=== PATIENT | female | born 1990 | race Hispanic/Latino ===

== ENCOUNTER 2016-10-10 22:31 | Emergency (ER) | payer MEDICAID ==
[2016-10-10] MEDS ORDERED: Sodium Chloride 0.9% 1,000 ML ONE (22:55)
[2016-10-10] MEDS ORDERED: Acetaminophen 500 MG TAB ONE (22:55)
[2016-10-10 23:00] LABS: #Basophils 0.1 thou/uL (0.0-0.2); #Eosinphils 0.1 thou/uL (0.0-0.7); #Lymphocytes 1.2 thou/uL (1.20-3.40); #Monocytes 0.9 thou/uL (0.11-0.59); #Neutrophils 13.5 thou/uL (1.40-6.50); %Basophils 0.6 % (0.0-1.0); %Eosinophils 0.3 % (0.0-10.0); %Lymphocytes 7.7 % (21.0-51.0); %Monocytes 5.6 % (0.0-10.0); Mean Platelet Volume 9.1 fL (7.4-10.4); Red Blood Cell (RBC) Count 4.09 mill/uL (4.20-5.40); White Blood Cell (WBC) Count 15.7 thou/uL (4.8-10.8)
[2016-10-10 23:21] LABS: ALT (SGPT) 13 U/L (0-55); AST (SGOT) 18 U/L (5-34); Alkaline Phosphatase 38 U/L (40-150); Anion Gap 14 mmol/L (10-20); BUN (Urea Nitrogen) 5 mg/dL (7.0-18.7); Bilirubin, Total 1.3 mg/dL (0.2-1.2); Calc. Creatinine Clearance 0 mL/min (70-130); Calcium 9.4 mg/dL (7.8-10.44); Carbon Dioxide 20 mmol/L (22-29); Chloride 104 mmol/L (98-107); Estimated GFR-MDRD Greater than 90; Globulin 3.7 g/dL (2.4-3.5); Protein, Total 7.6 g/dL (6.0-8.3)
[2016-10-10 23:34] LABS: Bilirubin Negative (Negative); Blood, Urine Negative (Negative); Glucose, Urine (Dipstick) Negative (Negative); Ketone, Urine 40 mg/dL (Negative); Nitrite Negative (Negative); Protein, Urine (Dipstick) Negative (Neg-Trace); Urobilinogen 0.2 mg/dL (0.2-1.0)
[2016-10-10 23:35] LABS: Bacteria/HPF None Seen HPF (None Seen); RBC/HPF None Seen HPF (0-3); Squamous Epithelial 0-3 HPF (0-3); WBC/HPF None Seen HPF (0-3)
--- NOTE | 2016-10-11 00:21 | ERRECORD ---
[facility] EMERGENCY RECORD HPI SORE THROAT (22:47 JLOY) CHIEF COMPLAINT: Patient presents for evaluation of sore throat, Patient presents for evaluation of Pt with sore throat starting today. Also with fevers and chills. Slight runny nose and cough. 4yo sick with a virus that sent him to the hospital twice. HISTORIAN: History provided by patient. LOCATION: Symptoms are generalized. QUALITY: Pain is dull in nature. TIME COURSE: Gradual onset of symptoms, Symptoms are worsening, are constant. ASSOCIATED WITH: Associated with fever, subjective, Associated with chills, Associated with cough, non-productive, intermittent, No associated drooling, No associated dysphagia, Associated with headache, intermittent, No associated nasal discharge, No associated vomiting. EXACERBATED BY: Patient's condition exacerbated by nothing. RELIEVED BY: Patient's condition relieved by nothing, Patient's condition relieved by nothing because patient has not tried anything for relief. ROS (22:49 JLOY) CONSTITUTIONAL: Historian reports chills, reports fever. EYES: Historian denies eye pain, denies eye redness, denies eye discharge. ENT: Historian denies rhinorrhea, reports sore throat. CARDIOVASCULAR: Historian denies chest pain. RESPIRATORY: Historian reports cough, denies shortness of breath, denies sputum. GI: Historian denies abdominal pain, reports diarrhea, reports nausea, denies vomiting. diarrhea x3 today. GENITOURINARY FEMALE: Historian denies dysuria, denies frequency, denies hematuria, reports , denies vaginal bleeding, denies vaginal discharge. SKIN: Historian denies rash, denies skin changes. NEUROLOGIC: Historian denies dizziness, reports headache, denies paralysis, denies paresthesias, denies sensory changes. PAST MEDICAL HISTORY MEDICAL HISTORY: Flu vaccine up to date, Tetanus immunization up to date, Pneumococcal vaccine not up to date, Past medical history includes pulmonary disease, asthma. (22:39 MBOS) FEMALE SURGICAL HISTORY: Surgical history of section, Notes: x2. (22:39 MBOS) PSYCHIATRIC HISTORY: No previous psychiatric history. (22:39 MBOS) SOCIAL HISTORY: Patient denies alcohol use, Patient denies drug &a-1R&a+25V*p+0X*[id number]*c202B*c15G*c2P*p-0X&a-25V&a+1R Name: Zuleima Bernal : 1990 F25 MedRec: [id number] AcctNum: [id number] Prepared: SatOct 11, 2016 00:25 by Interface Page 1 of 3 pMD [facility] EMERGENCY RECORD use, Patient has no smoking history. (22:39 MBOS) NOTES: Nursing records reviewed, Agree with nursing records. (22:50 JLOY) KNOWN ALLERGIES No Known Allergies (Unconfirmed) No Known Drug Allergies CURRENT MEDICATIONS (22:38 MBOS) vitamin VITAL SIGNS VITAL SIGNS: BP: 154/80, Pulse: 131, Resp: 20, Temp: 100.1 (Oral), Pain: 10, O2 sat: 97 on Room Air, Time: 10/10/2016 22:36. (22:36 MBOS) BP: 123/75, Pulse: 105, Resp: 18, Temp: 100.0 (Oral), O2 sat: 99 on Room Air, Time: 10/11/2016 00:00. (SatOct 11, 2016 00:00 MBOS) PHYSICAL EXAM (22:49 JLOY) CONSTITUTIONAL: Vital Signs Reviewed, Patient appears non toxic, Patient alert and oriented to person, place and time. EYES: Eye exam included findings of eyelids normal to inspection, Pupils equally round and reactive to light, Conjunctiva normal. ENT: Ear exam normal, external ear normal, tympanic membranes normal, Pharynx exam normal, Uvula exam normal, Tonsil exam normal, Mouth exam normal, mucous membranes moist. NECK: Neck exam included findings of normal range of motion, Trachea midline, Cervical adenopathy, tender. RESPIRATORY CHEST: Respiratory exam included findings of no respiratory distress, Breath sounds clear, No wheezing, No rales, No rhonchi, Chest exam included findings of chest movement symmetrical. CARDIOVASCULAR: Cardiovascular exam included findings of, rate tachycardic, rhythm regular, Heart sounds normal. ABDOMEN FEMALE: Abdominal exam included findings of abdomen nontender, Bowel sounds normal. BACK: Back exam included findings of normal inspection, range of motion normal. UPPER EXTREMITY: Upper extremity exam included findings of inspection normal, Radial pulse normal, no cyanosis, no clubbing, no edema. LOWER EXTREMITY: Lower extremity exam included findings of inspection normal, no edema, no calf tenderness. NEURO: [place] coma scale 15, Neuro exam findings include patient oriented to person, place and time, Speech normal. SKIN: Skin exam included findings of skin warm, dry, and normal in color, no rash. PSYCHIATRIC: Normal affect. MEDICATION ADMINISTRATION SUMMARY &a-1R&a+25V*p+0X*[id number]*c202B*c15G*c2P*p-0X&a-25V&a+1R Name: Zuleima Bernal : 1990 F25 MedRec: [id number] AcctNum: [id number] Prepared: SatOct 11, 2016 00:25 by Interface Page 2 of 3 pMD [facility] EMERGENCY RECORD Drug Name: acetaminophen oral, Dose Ordered: 1000 mg, Route: Oral, Status: Given, Time: 22:50 10/10/2016, Drug Name: *sodium chloride 0.9 % intravenous, Dose Ordered: 1 L, Route: IV Fluid Infusion, Status: Given, Time: 22:50 10/10/2016, *Additional information available in notes, Detailed record available in Medication Service section. DOCTOR NOTES (SatOct 11, 2016 00:13 KANCHAN) TEXT: Pt's 4yo son recently with a virus and high fevers for which he was in the hospital a couple of times. PROBLEM LIST No recorded problems DIAGNOSIS (SatOct 11, 2016 00:13 KANCHAN) FINAL: PRIMARY: Acute pharyngitis. PRESCRIPTION No recorded prescriptions DISPOSITION PATIENT: Disposition Type: Discharge, Disposition: *Discharge Home. (SatOct 11, 2016 00:13 KANCHAN) Patient left the department. (SatOct 11, 2016 00:23 KENISHA) Strong: KANCHAN=MD Salinas, Amari DE=LARRY Hsieh, Felicitas &a-1R&a+25V*p+0X*k3576B*c202B*c15G*c2P*p-0X&a-25V&a+1R Name: Zuleima Bernal : 1990 F25 MedRec: [id number] AcctNum: [id number] Prepared: SatOct 11, 2016 00:25 by Interface Page 3 of 3 pMD MTDD
--- NOTE | 2016-10-11 00:27 | PICIS ---
[facility] EMERGENCY RECORD TRIAGE (22:37 MBOS) TRIAGE NOTES: fever, chills, sore throat, body aches. Is 4 months . (22:37 MBOS) PATIENT: NAME: Zuleima Bernal, AGE: 25, GENDER: female, : Sun 1990, TIME OF GREET: SatOct 10, 2016 22:32, PREFERRED LANGUAGE: Bermudian, ETHNICITY: or , ECODE BILLING MAP: [facility], SSN: [id number], Zip Code: [address], KG WEIGHT: [phone], PHONE: , , , PERSON ID: [id number], PCP: Jameel Hand, /NIMA. (22:37 MBOS) COMPLAINT: FEVER,THROAT PAIN. (22:37 MBOS) ADMISSION: URGENCY: 4 Non Urgent, ADMISSION SOURCE: Home, TRANSPORT: CAR, BED: ER -05. (22:37 MBOS) ASSESSMENT: Assessment: fever, sore throat, chills, body aches, headache., Symptoms began 10 hours ago. (22:39 MBOS) PAIN: Patient complains of pain described as, on a scale 0-10 patient rates pain as 10, Location throat. (22:39 MBOS) IMMUNIZATIONS: Flu vaccine up to date, Tetanus immunization up to date, Pneumococcal vaccine not up to date. (22:39 MBOS) SIRS SCORING: Heart Rate 110-139 (2), Temp range 96.8-101.1 (0), respiratory rate 12-24 (0), Latest WBC 3-14.9 (0). (22:39 MBOS) PROVIDERS: TRIAGE NURSE: Felicitas Hsieh RN. (22:37 MBOS) VITAL SIGNS: BP 154/80, Pulse 131, Resp 20, Temp 100.1, (Oral), Pain 10, O2 Sat 97, on Room Air, Time 10/10/2016 22:36. (22:36 MBOS) PREVIOUS VISIT ALLERGIES: No Known Drug Allergies. (22:37 MBOS) No Known Drug Allergies. (22:39 MBOS) KNOWN ALLERGIES No Known Allergies (Unconfirmed) No Known Drug Allergies CURRENT MEDICATIONS (22:38 MBOS) vitamin VITAL SIGNS VITAL SIGNS: BP: 154/80, Pulse: 131, Resp: 20, Temp: 100.1 (Oral), Pain: 10, O2 sat: 97 on Room Air, Time: 10/10/2016 22:36. (22:36 MBOS) BP: 123/75, Pulse: 105, Resp: 18, Temp: 100.0 (Oral), O2 sat: 99 on Room Air, Time: 10/11/2016 00:00. (SatOct 11, 2016 00:00 MBOS) NURSING ASSESSMENT: HEAD-TO-TOE (23:05 MBOS) CONSTITUTIONAL: Patient arrives ambulatory, Gait steady, History obtained from patient, Patient appears, generally ill, Patient cooperative, Patient alert, Oriented to person, place and time, Skin abnormal, Skin temperature is hot, Skin dry, Skin normal in color, Mucous membranes pink, Mucous membranes moist, Patient is well-groomed, Patient complains of fever, sore throat, also &a-1R&a+25V*p+0X*k0986F*c202B*c15G*c2P*p-0X&a-25V&a+1R Name: Zuleima Bernal : 1990 F25 MedRec: [id number] AcctNum: [id number] Prepared: SatOct 11, 2016 00:31 by Interface Page [address] [facility] EMERGENCY RECORD complaining of chills, headache, body aches. PAIN: throat, on a scale 0-10 patient rates pain as 10. ENT: Ear assessment findings include ear normal to inspection, Nasal assessment findings include nose normal to inspection, Sinuses normal, Nasal mucosa normal, Tonsils, swollen +2 on the left, swollen +2 on the right, Mucous membranes pink, and moist, Unable to swallow, states it is painful and difficult to swallow, Associated with fever, Maximum temperature (degree F) 100.1, orally, Associated with headache. RESPIRATORY/CHEST: Breath sounds clear, Respiratory assessment findings include respiratory effort easy, Respirations regular, Conversing normally, Neck and chest exam findings include trachea midline, Chest expansion equal, Chest movement symmetrical, no signs of distress, Associated with fever. CARDIOVASCULAR: Cardiovascular assessment findings include heart rate, tachycardic, Rate 131, Heart sounds normal. GENITOURINARY FEMALE: , per patient, Gestational age 12-18 weeks by history, milestones: States is 4 months . SAFETY: Side rails up, Cart/Stretcher in lowest position, Call light within reach, Hospital ID band on. NURSING PROCEDURE: BEDSIDE TESTING (23:11 MBOS) RAPID STREP: Rapid strep indicated for throat pain. SAFETY: Side rails up, Cart/Stretcher in lowest position, Call light within reach, Hospital ID band on. NURSING PROCEDURE: DISCHARGE NOTE (SatOct 11, 2016 00:21 MBOS) DISCHARGE: Patient discharged to home, ambulating without assistance, family driving, accompanied by //partner, Summary of Care printed/ provided, Discharge instructions given to patient, Simple or moderate discharge teaching performed, Above person(s) verbalized understanding of discharge instructions and follow-up care, Patient treated and evaluated by physician. NURSING PROCEDURE: IV (23:09 MBOS) PATIENT IDENITIFIER: Patient actively involved in identification process, Patient's identity verified by patient stating name, Patient's identity verified by patient stating date, Patient's identity verified by hospital ID bracelet. IV SITE 1: IV therapy indicated for hydration, IV established, to the left antecubital, using a 20 gauge catheter, in one attempt, Saline lock established, Flushed with normal saline (mls): 10ml, Labs drawn at time of placement, labeled in the presence of the patient and sent to lab. SAFETY: Side rails up, Cart/Stretcher in lowest position, Call light within reach, Hospital ID band on. &a-1R&a+25V*p+0X*y1908Z*c202B*c15G*c2P*p-0X&a-25V&a+1R Name: Zuleima Bernal : 1990 F25 MedRec: [id number] AcctNum: [id number] Prepared: SatOct 11, 2016 00:31 by Interface Page [address] [facility] EMERGENCY RECORD NURSING PROCEDURE: NURSE NOTES (23:29 MBOS) NURSES NOTES: Patient assisted to bathroom with steady gait, Patient in no apparent distress. ORDER DETAILS Order Name: CBC with Differential, Status: Active, Time: 22:41 10/10/2016, User: KANCHAN, - Ordered for: MD Niño Joshua, - Entered by: MD Niño Joshua - SatOct 10, 2016 22:41, - Quantity: 1, Order Name: Comprehensive Metabolic Panel, Status: Active, Time: 22:41 10/10/2016, User: KANCHAN, - Ordered for: MD Niño Joshua, - Entered by: MD Niño Joshua - SatOct 10, 2016 22:41, - Quantity: 1, Order Name: Influenza A&B Ag Screen, Status: Active, Time: 22:41 10/10/2016, User: KANCHAN, - Ordered for: MD Niño Joshua, - Entered by: MD Niño Joshua - Jose Oct 10, 2016 22:41, - Quantity: 1, Order Name: SALINE LOCK, Status: Done, Time: 22:53 10/10/2016, User: KENISHA, - Ordered for: MD Niño Joshua, - Entered by: MD Niño Joshua - SatOct 10, 2016 22:41, - Quantity: 1, Order Name: Strep Group A Screen, Status: Active, Time: 22:41 10/10/2016, User: KANCHAN, - Ordered for: MD Niño Joshua, - Entered by: MD Niño Joshua - SatOct 10, 2016 22:41, - Quantity: 1, Order Name: Urinalysis with Microscopic, Status: Active, Time: 22:50 10/10/2016, User: KANCHAN, - Ordered for: MD Niño Joshua, - Entered by: MD Niño Joshua - SatOct 10, 2016 22:50, - Quantity: 1. MEDICATION ADMINISTRATION SUMMARY Drug Name: acetaminophen oral, Dose Ordered: 1000 mg, Route: Oral, Status: Given, Time: 22:50 10/10/2016, Drug Name: *sodium chloride 0.9 % intravenous, Dose Ordered: 1 L, Route: IV Fluid Infusion, Status: Given, Time: 22:50 10/10/2016, *Additional information available in notes, Detailed record available in Medication Service section. MEDICATION SERVICE acetaminophen oral: Order: acetaminophen oral (acetaminophen) - Dose: 1000 mg : Oral &a-1R&a+25V*p+0X*q3776X*c202B*c15G*c2P*p-0X&a-25V&a+1R Name: Zuleima Bernal : 1990 F25 MedRec: [id number] AcctNum: [id number] Prepared: [facility] Oct 11, 2016 00:31 by Interface Page [address] [facility] EMERGENCY RECORD Ordered by: Amari Niño MD Entered by: Amari Niño MD SatOct 10, 2016 22:47 , Acknowledged by: Felicitas Hsieh RN SatOct 10, 2016 22:54 Documented as given by: Felicitas Hsieh RN SatOct 10, 2016 22:50 Patient, Medication, Dose, Route and Time verified prior to administration. Patient appears Awake and alert- acceptable, Correct patient, time, route, dose and medication confirmed prior to administration, Patient advised of actions and side-effects prior to administration, Allergies confirmed and medications reviewed prior to administration, Patient in position of comfort, Side rails up, Cart in lowest position. sodium chloride 0.9 % intravenous: Order: sodium chloride 0.9 % intravenous (0.9 % sodium chloride) - Dose: 1 L : IV Fluid Infusion Notes: (Bolus) Ordered by: Amari Niño MD Entered by: Amari Niño MD SatOct 10, 2016 22:42 , Acknowledged by: Felicitas Hsieh RN SatOct 10, 2016 22:54 Documented as given by: Felicitas Hsieh RN SatOct 10, 2016 22:50 Patient, Medication, Dose, Route and Time verified prior to administration. IV SITE #1 IV fluids established for hydration, IV SITE #1 into left antecubital, IV SITE #1 1st bag hung, amount 1 Liter hung, IV SITE #1 bolus of 1000 ml established, via primary tubing, Awake and alert- acceptable, Catheter placement confirmed via flush prior to administration, IV site without signs or symptoms of infiltration during medication administration, No swelling during administration, No drainage during administration, IV flushed after administration, Correct patient, time, route, dose and medication confirmed prior to administration, Patient advised of actions and side-effects prior to administration, Allergies confirmed and medications reviewed prior to administration, Patient in position of comfort, Side rails up, Cart in lowest position, Family at bedside. : Follow Up : _IV SITE #1:_, IV fluid infusion discontinued, on SatOct 11, 2016 00:16, Total fluid hydration time IV site 1 1 hour, 30 minutes, ., Total amount infused: 1000ml, IV Discontinued with catheter intact, Patient in position of comfort, Side rails up, Cart in lowest position. (SatOct 11, 2016 00:21 MBOS) HPI SORE THROAT (22:47 JLOY) CHIEF COMPLAINT: Patient presents for evaluation of sore throat, Patient presents for evaluation of Pt with sore throat starting today. Also with fevers and chills. Slight runny nose and cough. 4yo sick with a virus that sent him to the hospital twice. HISTORIAN: History provided by patient. LOCATION: Symptoms are generalized. QUALITY: Pain is dull in nature. TIME COURSE: Gradual onset of symptoms, Symptoms are worsening, are constant. ASSOCIATED WITH: &a-1R&a+25V*p+0X*l5104D*c202B*c15G*c2P*p-0X&a-25V&a+1R Name: Zuleima Bernal : 1990 F25 MedRec: [id number] AcctNum: [id number] Prepared: SatOct 11, 2016 00:31 by Interface Page [address] [facility] EMERGENCY RECORD Associated with fever, subjective, Associated with chills, Associated with cough, non-productive, intermittent, No associated drooling, No associated dysphagia, Associated with headache, intermittent, No associated nasal discharge, No associated vomiting. EXACERBATED BY: Patient's condition exacerbated by nothing. RELIEVED BY: Patient's condition relieved by nothing, Patient's condition relieved by nothing because patient has not tried anything for relief. ROS (22:49 JLOY) CONSTITUTIONAL: Historian reports chills, reports fever. EYES: Historian denies eye pain, denies eye redness, denies eye discharge. ENT: Historian denies rhinorrhea, reports sore throat. CARDIOVASCULAR: Historian denies chest pain. RESPIRATORY: Historian reports cough, denies shortness of breath, denies sputum. GI: Historian denies abdominal pain, reports diarrhea, reports nausea, denies vomiting. diarrhea x3 today. GENITOURINARY FEMALE: Historian denies dysuria, denies frequency, denies hematuria, reports , denies vaginal bleeding, denies vaginal discharge. SKIN: Historian denies rash, denies skin changes. NEUROLOGIC: Historian denies dizziness, reports headache, denies paralysis, denies paresthesias, denies sensory changes. PAST MEDICAL HISTORY MEDICAL HISTORY: Flu vaccine up to date, Tetanus immunization up to date, Pneumococcal vaccine not up to date, Past medical history includes pulmonary disease, asthma. (22:39 MBOS) FEMALE SURGICAL HISTORY: Surgical history of section, Notes: x2. (22:39 MBOS) PSYCHIATRIC HISTORY: No previous psychiatric history. (22:39 MBOS) SOCIAL HISTORY: Patient denies alcohol use, Patient denies drug use, Patient has no smoking history. (22:39 MBOS) NOTES: Nursing records reviewed, Agree with nursing records. (22:50 JLOY) PHYSICAL EXAM (22:49 JLOY) CONSTITUTIONAL: Vital Signs Reviewed, Patient appears non toxic, Patient alert and oriented to person, place and time. EYES: Eye exam included findings of eyelids normal to inspection, Pupils equally round and reactive to light, Conjunctiva normal. ENT: Ear exam normal, external ear normal, tympanic membranes &a-1R&a+25V*p+0X*l9991F*c202B*c15G*c2P*p-0X&a-25V&a+1R Name: Zuleima Bernal : 1990 F25 MedRec: [id number] AcctNum: [id number] Prepared: Izabel Oct 11, 2016 00:31 by Interface Page [address] [facility] EMERGENCY RECORD normal, Pharynx exam normal, Uvula exam normal, Tonsil exam normal, Mouth exam normal, mucous membranes moist. NECK: Neck exam included findings of normal range of motion, Trachea midline, Cervical adenopathy, tender. RESPIRATORY CHEST: Respiratory exam included findings of no respiratory distress, Breath sounds clear, No wheezing, No rales, No rhonchi, Chest exam included findings of chest movement symmetrical. CARDIOVASCULAR: Cardiovascular exam included findings of, rate tachycardic, rhythm regular, Heart sounds normal. ABDOMEN FEMALE: Abdominal exam included findings of abdomen nontender, Bowel sounds normal. BACK: Back exam included findings of normal inspection, range of motion normal. UPPER EXTREMITY: Upper extremity exam included findings of inspection normal, Radial pulse normal, no cyanosis, no clubbing, no edema. LOWER EXTREMITY: Lower extremity exam included findings of inspection normal, no edema, no calf tenderness. NEURO: Lacey coma scale 15, Neuro exam findings include patient oriented to person, place and time, Speech normal. SKIN: Skin exam included findings of skin warm, dry, and normal in color, no rash. PSYCHIATRIC: Normal affect. EVENTS TRANSFER: Triage to Emergency Emergency Room -05. (SatOct 10, 2016 22:37 MBOS) Removed from Emergency Emergency Room -05. (SatOct 11, 2016 00:23 MBOS) DOCTOR NOTES (SatOct 11, 2016 00:13 JLOY) TEXT: Pt's 2yo son recently with a virus and high fevers for which he was in the hospital a couple of times. PROBLEM LIST No recorded problems DIAGNOSIS (SatOct 11, 2016 00:13 JLOY) FINAL: PRIMARY: Acute pharyngitis. DISPOSITION PATIENT: Disposition Type: Discharge, Disposition: *Discharge Home. (SatOct 11, 2016 00:13 JLOY) Patient left the department. (SatOct 11, 2016 00:23 MBOS) INSTRUCTION (SatOct 11, 2016 00:14 JLOY) DISCHARGE: PHARYNGITIS, VIRAL. FOLLOWUP: [facility], /[facility], Clinic, [address], [address], [facility] [address], , MD MADDY, IZZY, Obstetrics and Gynecology, [address] [facility], [address] &a-1R&a+25V*p+0X*c7414D*c202B*c15G*c2P*p-0X&a-25V&a+1R Name: Zuleima Bernal : 1990 F25 MedRec: [id number] AcctNum: [id number] Prepared: SatOct 11, 2016 00:31 by Interface Page [address] [facility] EMERGENCY RECORD [address], [facility] [id number], [id number], Follow up with Specialist in 1-2 days. PRESCRIPTION No recorded prescriptions IMAGING (SatOct 11, 2016 00:22 MBOS) *DISCHARGE INSTRUCTIONS RECEIPT: Image captured from scanner. *SUPPLY CHARGE SHEET: Image captured from scanner. ADMIN (SatOct 11, 2016 00:14 [facility]) DIGITAL SIGNATURE: MD Niño Joshua. RESULTS (23:49 [facility]) LABORATORY: Urinalysis with Microscopic Collection DT: SatOct 10, 2016 23:31, Color Yellow , Range (Yellow), Clarity Clear , Range (Clear), Specific [place], Urine 1.020 , Range (1.005-1.030), pH, Urine 8.0 , Range (5.0-9.0), Leukocyte Negative , Range (Negative), Nitrite Negative , Range (Negative), Protein, Urine (Dipstick) Negative mg/dL, Range (Neg-Trace), Glucose, Urine (Dipstick) Negative mg/dL, Range (Negative), *Ketone, Urine 40 - H mg/dL, Range (Negative), Urobilinogen 0.2 mg/dL, Range (0.2-1.0), Bilirubin Negative , Range (Negative), Blood, Urine Negative , Range (Negative), RBC/HPF None Seen HPF, Range (0-3), WBC/HPF None Seen HPF, Range (0-3), Squamous Epithelial 0-3 HPF, Range (0-3), Bacteria/HPF None Seen HPF, Range (None Seen). Comprehensive Metabolic Panel Collection DT: SatOct 10, 2016 22:59, *Sodium 135 - L mmol/L, Range (136-145), *Potassium 3.4 - L mmol/L, Range (3.5-5.1), Chloride 104 mmol/L, Range (98-107), *Carbon Dioxide 20 - L mmol/L, Range (22-29), Anion Gap 14 mmol/L, Range (10-20), *BUN (Urea Nitrogen) 5 - L mg/dL, Range (7.0-18.7), Creatinine 0.63 mg/dL, Range (0.6-1.1), Estimated GFR-MDRD Greater than 90 , Reference Range for Estimated GFR: Greater than 90, mL/min/1.73 m2 NOTE: The MDRD equation has not been validated for use, with the elderly (over 70 years of age), women, patients with, serious comorbid condition or persons with extremes of body size, muscle, mass, or nutritional status. , &a-1R&a+25V*p+0X*x6483E*c202B*c15G*c2P*p-0X&a-25V&a+1R Name: Zuleima Bernal : 1990 F25 MedRec: [id number] AcctNum: [id number] Prepared: [facility] Oct 11, 2016 00:31 by Interface Page [address] [facility] EMERGENCY RECORD *Glucose 106 - H mg/dL, Range (70-105), Calcium 9.4 mg/dL, Range (7.8-10.44), *Bilirubin, Total 1.3 - H mg/dL, Range (0.2-1.2), Protein, Total 7.6 g/dL, Range (6.0-8.3), NOTE: Plasma values are generally 0.3 to 0.5 g/dL higher than serum values, due to the presence of fibrinogen. , Albumin 3.9 g/dL, Range (3.5-5.0), *Globulin 3.7 - H g/dL, Range (2.4-3.5), *Alb/Glob Ratio 1.1 - L g/dL, Range (1.2-2.2), *Alkaline Phosphatase 38 - L U/L, Range (40-150), AST (SGOT) 18 U/L, Range (5-34), ALT (SGPT) 13 U/L, Range (0-55). MICROBIOLOGY: Influenza A&B Ag Screen: [id number] Collection DT: SatOct 10, 2016 23:00, See comment below , @ ER ROOM#: [id number] Source: Nasal swab Spec Desc: , Influenza A Antigen: NEGATIVE for the , presence of , INFLUENZA A Antigen , Influenza B Antigen: NEGATIVE for the , presence of , INFLUENZA B Antigen . Strep Group A Screen: [id number] Collection DT: SatOct 10, 2016 23:00, See comment below , @ ER ROOM#: [id number] Source: Throat Spec Desc: PENDING, Strep A Negative CDC recommends , confirmation by , culture on all , negative , Strep negative line 1 Group A , Streptococcus rapid , screens. Please , order , Strep negative line 2 a throat culture if , clinically , indicated. , Rapid Strep Screen:Throat Negative . LABORATORY: CBC with Differential Collection DT: SatOct 10, 2016 22:59, *White Blood Cell (WBC) Count 15.7 - H thou/uL, Range (4.8-10.8), *Red Blood Cell (RBC) Count 4.09 - L mill/uL, Range (4.20-5.40), Hemoglobin 13.2 g/dL, Range (12.0-16.0), Hematocrit 38.0 %, Range (36.0-47.0), Mean Corpuscular Volume 93.1 fl, Range (81.0-99.0), *Mean Corpuscular Hemoglobin 32.2 - H pg, Range (27.0-31.0), Mean Corpuscular HGB CONC 34.6 g/dL, Range (32.0-36.0), &a-1R&a+25V*p+0X*r2971U*c202B*c15G*c2P*p-0X&a-25V&a+1R Name: Bernal Zuleima A : 1990 F25 MedRec: [id number] AcctNum: [id number] Prepared: SatOct 11, 2016 00:31 by Interface Page 8 of 9 [facility] EMERGENCY RECORD *RBC Distribution Width 11.0 - L %, Range (11.5-14.5), Platelet Count 205 thou/uL, Range (130-400), Mean Platelet Volume 9.1 fL, Range (7.4-10.4), *%Neutrophils 85.8 - H %, Range (42.0-75.0), *%Lymphocytes 7.7 - L %, Range (21.0-51.0), %Monocytes 5.6 %, Range (0.0-10.0), %Eosinophils 0.3 %, Range (0.0-10.0), %Basophils 0.6 %, Range (0.0-1.0), *#Neutrophils 13.5 - H thou/uL, Range (1.40-6.50), #Lymphocytes 1.2 thou/uL, Range (1.20-3.40), *#Monocytes 0.9 - H thou/uL, Range (0.11-0.59), #Eosinphils 0.1 thou/uL, Range (0.0-0.7), #Basophils 0.1 thou/uL, Range (0.0-0.2). Strong: KANCHAN=MD Salinas, Amari DE=LARRY Hsieh, Felicitas &a-1R&a+25V*p+0X*e1271K*c202B*c15G*c2P*p-0X&a-25V&a+1R Name: BernalZuleima : 1990 F25 MedRec: [id number] AcctNum: [id number] Prepared: SatOct 11, 2016 00:31 by Interface Page [address] [facility] MEDICATION RECONCILIATION You were seen in the Emergency Department on: SatOct 10, 2016 KNOWN ALLERGIES No Known Allergies (Unconfirmed) No Known Drug Allergies MEDICATIONS GIVEN WHILE IN THE EMERGENCY DEPARTMENT sodium chloride 0.9 % intravenous (0.9 % sodium chloride) - Dose: 1 liter(s) : IV Fluid Infusion acetaminophen oral (acetaminophen) - Dose: 1000 milligram(s) : Oral HOME MEDICATIONS CONTINUE PRESCRIBED vitamin Continue as prescribed &a-1R&a+25V*p+0X*g4625O*c202B*c15G*c2P*p-0X&a-25V&a+1R Name: Zuleima Bernal : 1990 F25 MedRec: [id number] AcctNum: [id number] Prepared: SatOct 11, 2016 00:31 by Interface pMD [facility]
== END 2016-10-11 00:20 | disposition home or self-care (01) ==
LOC: NAV ERS 22:31
DX: O99.512 Diseases of the respiratory system complicating pregnancy, second trimester (principal); J02.9 Acute pharyngitis, unspecified; J45.909 Unspecified asthma, uncomplicated
CPT/HCPCS: 36415; 80053; 81001; 85025; 87430; 96360; J7050